=== PATIENT | female | born 1955 | race Caucasian/White ===

== ENCOUNTER 2024-07-11 09:12 | Emergency (ER) | payer MEDICARE, OTHER, SELFPAY ==
--- NOTE | 2024-07-11 09:18 | ED.URI ---
HPI - URI/Sore Throat General Chief Complaint: Upper Respiratory Infection Stated Complaint: Cold Symptoms Time Seen by Provider: 07/11/24 09:18 Source: patient Mode of arrival: ambulatory Limitations: no limitations History of Present Illness HPI Narrative: Jose Elias is a 69-year-old female patient presenting to the clinic today with complaints of cough, sore throat, nasal congestion and chest congestion x1 week. Denies any shortness of breath or chest pain. Had fever highest of 100. Related Data Home Medications ?Medication ?Instructions ?Recorded ?Confirmed ?Last Taken ?Type fluticasone propionate 50 2 spray intranasal DAILY 04/30/21 01/27/24 Unknown History mcg/actuation nasal spray,suspension (Flonase Allergy Relief) levocetirizine 5 mg tablet (Xyzal) 5 mg PO DAILY 06/17/22 01/27/24 Unknown History carvedilol 3.125 mg tablet mg 07/11/24 Unknown History clopidogrel 75 mg tablet mg 07/11/24 Unknown History metoprolol succinate 25 mg mg PO 07/11/24 Unknown History tablet,extended release 24 hr Allergies Allergy/AdvReac Type Severity Reaction Status Date / Time No Known Allergies Allergy Verified 01/27/24 09:42 Review of Systems Review of Systems: Pertinent positives per HPI. Patient denies any fever, chills, rash, headache, visual changes, dizziness, cough, shortness of breath, chest pain, palpitations, nausea, vomiting, diarrhea, constipation, abdominal pain, or any urinary issues. FOR[facility]LY [facility] Past Medical History Medical History Portal hypertension Diverticulosis Esophageal varices Cirrhosis Macular degeneration Abnormal colonoscopy 07/2016 cancerous polyps Hypothyroid Essential hypertension Type 2 diabetes mellitus without complication, without long-term current use of insulin Vitamin D deficiency Surgical History Surgical History History of hand surgery right middle finger DIP jt cyst removal, 2022 History of cholecystectomy 1994 H/O colonoscopy 01/01/22-repeat 5 years H/O: hysterectomy delivery delivered Family History Family History Grandparent Diabetes mellitus Family history of malignant neoplasm Father Cerebrovascular accident Mother Family history of primary malignant neoplasm of liver Sibling Family history of malignant neoplasm of breast in first degree relative Social History Social History Smoking status: Never smoker Second hand tobacco smoke exposure: No Alcohol intake: never Substance use: never Substance use type: does not use Lack of Transportation: No Lack of Food: Never True Current Housing: I Have Housing Concerned About Future Housing: No Difficulty Paying Gas/Electric Bills: No Difficulty Paying for Meds: No Currently Unemployed: No Education: High School Diploma/GED Difficulty w/ Childcare or Family Care: No Living arrangements: with family Occupation/Education: occupation Gender identity (if verbalized by the patient): Female Sexual Orientation (if Verbalized by the Patient): Straight or Heterosexual Spiritual care concerns: No Agree to blood products: Yes Comments At the time of my signature, I reviewed and agree with the nursing past medical, surgical, social, and family history. There is no relevant family history pertinent to the patient complaint. Exam Narrative: General: Well-developed, well nourished, in no apparent distress Head: Normocephalic, atraumatic Eyes: Pupils equally round and reactive to light bilaterally, EOM intact, sclera and conjunctive clear, no discharge, lids normal Ears: TMs intact and clear, ear canals clear, no drainage, grossly hearing normal. Nose: Nares patent, clear nasal discharge, no inflammation, no sinus tenderness. Mouth: Oral pharynx without lesions or masses, good dentition, MMM. Neck: Supple, trachea midline, no enlargement of anterior or posterior cervical nodes, no thyroid masses or goiter palpable. Cardio: Regular rate and rhythm, s1 and s2 normal, no murmur appreciated. Resp: Clear to auscultation bilaterally, no rhonchi, rales, wheezing or rubs Course Course Emergency Course: Portions of this record may have been created with voice recognition software. Level of Care: Express Care Visit Vital Signs Vital signs: Vital Signs Temperature 36.3 C L 07/11/24 09:31 Pulse Rate 69 07/11/24 09:31 Respiratory Rate 16 07/11/24 09:31 Blood Pressure 110/81 07/11/24 09:31 Pulse Oximetry 100 07/11/24 09:31 Temperature 36.3 C L 07/11/24 09:31 Pulse Rate 69 07/11/24 09:31 Respiratory Rate 16 07/11/24 09:31 Blood Pressure 110/81 07/11/24 09:31 Pulse Oximetry 100 07/11/24 09:31 Vital signs reviewed MDM - URI/Sore Throat MDM Narrative Medical decision making narrative: At the time of visit patient is resting comfortably on the exam table. Patient appears to be nontoxic. Labs: Strep test was negative in the clinic today. We will send strep for culture. Plan: I suspect patient has URI with cough congestion. Prescription for prednisone was sent to the pharmacy. Supportive measures were discussed with the patient and they voiced understanding discharge instructions and agrees to treatment plan. Return precautions reviewed Differential Diagnosis Differential diagnosis: Likely upper respiratory infection, otitis media, sinusitis, viral infection, bronchitis, influenza, pharyngitis and other (COVID) Discharge Plan Discharge Clinical Impression: Upper respiratory infection with cough and congestion Patient Disposition: Home, Self-Care Condition: Stable Instructions: Antibiotic Form, Cold Symptoms (ED) Additional Instructions: Strep test was negative in the clinic today. We will send strep for culture. Take prescription medications only as prescribed-prednisone Increase fluids and stay well hydrated Tylenol/motrin for pain/fever Flonase and OTC antihistamines as directed Vicks vapor rub to open sinuses Sinus rinses for congestion Cepacol spray, cough drops, throat lozenges, warm tea with honey/lemon, gargle salt water to soothe throat BRAT diet for diarrhea Clear liquids x 24 hours then advance as tolerated for nausea/vomiting Go to the ED if you develop a worsening in your condition- high fever not controlled by Tylenol or Motrin, dehydration, weakness, lethargy, shortness of breath, or chest pain. Follow up with your PCP in 3-5 days if symptoms persist. Patient Language: Sammarinese Prescriptions: New prednisone 20 mg tablet 40 mg PO DAILY 5 Days Qty: 10 0RF No Action clopidogrel 75 mg tablet carvedilol 3.125 mg tablet metoprolol succinate 25 mg tablet extended release 24 hr PO fluticasone propionate [Flonase Allergy Relief] 50 mcg/actuation spray,suspension 2 spray intranasal DAILY Rx Instructions: administer into each nostril levocetirizine [Xyzal] 5 mg tablet 5 mg PO DAILY (DME) lancets [OneTouch Delica Plus Lancet] 33 gauge misc See Rx Instructions .ROUTE .COMPLEX Qty: 100 1RF Dose Instruction: CHECK BLOOD SUGARS DAILY Rx Instructions: CHECK BLOOD SUGARS DAILY (DME) OneTouch Ultra Test Strip See Rx Instructions .ROUTE .COMPLEX Qty: 100 1RF Dose Instruction: CHECK BLOOD SUGARS DAILY Rx Instructions: CHECK BLOOD SUGARS DAILY Januvia 100 mg tablet 100 mg PO DAILY Qty: 90 0RF saxagliptin 5 mg tablet 5 mg PO DAILY Qty: 90 0RF thyroid (pork) 90 mg tablet 90 mg PO DAILY Qty: 90 0RF rosuvastatin 10 mg tablet 10 mg PO DAILY Qty: 90 0RF lisinopril 40 mg tablet 40 mg PO DAILY Qty: 90 0RF metformin 1,000 mg tablet 1,000 mg PO BID Qty: 60 0RF Follow-up/Referrals: PHYSICIAN,DEVICE REPAIR TECHNICIAN [Primary Care Provider] - Time of Disposition: 09:48 Quality NIHSS Nursing Documentation ED NIHSS nursing documentation: reviewed/agree
[2024-07-11 09:31] VITALS: BP 110/81; PULSE 69; RESP 16; TEMP 36.3; O2SAT 100
[2024-07-11 09:52] LABS: EDSTREPNEGPOS1 Negative (Negative)
== END 2024-07-11 10:01 | disposition home or self-care (01) ==
PROVIDERS: Emergency Provider Nurse Practitioner Family
DX: J06.9 Acute upper respiratory infection, unspecified (principal); R05.9 Cough, unspecified; I10 Essential (primary) hypertension; E11.9 Type 2 diabetes mellitus without complications; Z79.84 Long term (current) use of oral hypoglycemic drugs; E55.9 Vitamin D deficiency, unspecified; E03.9 Hypothyroidism, unspecified; H35.30 Unspecified macular degeneration; K74.60 Unspecified cirrhosis of liver; K76.6 Portal hypertension
CPT/HCPCS: 87081; 87880; 99213; G0463